=== PATIENT | male | born 1980 | race Caucasian/White ===

== ENCOUNTER 2022-04-21 19:00 | Emergency (ER) | payer SELFPAY ==
[~2022-04-21] VITALS: Ht 170.2 cm; Wt 73.9 kg
[2022-04-21 19:06] VITALS: BP 148/80
[2022-04-21] MEDS ORDERED: LIDOCAINE MPF 1% 10 MG/ML VIAL INJ ONE (19:35)
--- NOTE | 2022-04-21 19:40 | NUR ---
TO [facility]
--- NOTE | 2022-04-21 19:42 | NUR ---
MEDICATED PER [facility] ORDER, SIGNED AND CONSENTED FOR TETANUS VACCINE.
--- NOTE | 2022-04-21 20:18 | NUR ---
Patient has a 3 cm laceration to LEFT INDEX FINGER. Dr. THOMPSON applied sutures using sterile technique. Edges well approximated. Site cleansed with NS. No bleeding noted. Pt tolerated well.
[2022-04-21 20:40] VITALS: BP 120/80
--- NOTE | 2022-04-21 20:40 | NUR ---
Patient discharged with v/s stable. Written and verbal after care instructions given and explained. Patient verbalized understanding. Ambulatory with steady gait. All questions addressed prior to discharge. Advised to follow up with PMD.
== END 2022-04-21 19:40 | disposition home or self-care (01) ==
LOC: MED 19:00
DX: S61.211A Laceration without foreign body of left index finger without damage to nail, initial encounter (principal); W45.8XXA Other foreign body or object entering through skin, initial encounter; Y93.89 Activity, other specified; Y92.89 Other specified places as the place of occurrence of the external cause; Y99.8 Other external cause status
CPT/HCPCS: 12002; 90471; 90715; 99283; J2001

== ENCOUNTER 2022-11-03 15:09 | Emergency (ER) | payer OTHER ==
[~2022-11-03] VITALS: Ht 170.2 cm; Wt 73.9 kg
[2022-11-03 15:13] VITALS: BP 122/77
--- NOTE | 2022-11-03 16:00 | NUR ---
42/M PRESENTS TO ED WITH C/O "POSSIBLE CYST" IN GROIN AREA X2 WEEKS, DENIES PAIN AT THIS TIME.
[2022-11-03] MEDS ORDERED: IBUP-2213 PO (17:09)
--- NOTE | 2022-11-03 17:47 | NUR ---
PT LEFT WITHOUT D/C WORK OR INSTRUCTIONS.
== END 2022-11-03 17:47 | disposition home or self-care (01) ==
LOC: MED 15:09
DX: R59.0 Localized enlarged lymph nodes (principal); R03.0 Elevated blood-pressure reading, without diagnosis of hypertension; Z79.1 Long term (current) use of non-steroidal anti-inflammatories (NSAID)
CPT/HCPCS: 99284